=== PATIENT | male | born 1955 | race Caucasian/White ===

== ENCOUNTER 2021-12-25 13:05 | Emergency (ER) | payer MEDICARE, BC ==
--- NOTE | 2021-12-27 15:09 | Ultrasound Report ---
PROCEDURE: LEV INDICATIONS: left lower extremity pain and edema TECHNIQUE: Grayscale and Doppler ultrasound images of the left lower extremity were performed. COMPARISON: None. FINDINGS: The veins in the left lower extremity demonstrate normal compressibility and flow. No solid or cystic masses. No Kilpatrick's cyst in the left popliteal fossa. IMPRESSION: No evidence of DVT in the left lower extremity. Reviewed by: Jose Dale on 12/26/2021 12:23 PM PDT Approved by: Jose Dale on 12/26/2021 12:23 PM PDT Station ID: [id number]
== END 2021-12-25 15:53 | disposition home or self-care (01) ==
LOC: ED 13:05
DX: R22.42 Localized swelling, mass and lump, left lower limb (principal); M25.569 Pain in unspecified knee
CPT/HCPCS: 99282; 99284